=== PATIENT | male | born 1990 | race Caucasian/White ===

== ENCOUNTER 2018-06-18 11:42 | Emergency (ER) | payer OTHER ==
[2018-06-18 11:47] VITALS: BP 122/67; PULSE 67; TEMP 97.9; BMI 23.9
[2018-06-18] MEDS ORDERED: KETOROLAC TROMETHAMINE 30 MG/1 ML VIAL IM ONE (12:13)
--- NOTE | 2018-06-18 12:13 | PDOC ---
History of Present Illness - General Chief Complaint: Back Pain Stated Complaint: LOWER BACK PAIN Time Seen by Provider: 06/18/18 12:01 History Source: Patient Exam Limitations: No Limitations - History of Present Illness Initial Comments: 06/18/18 12:08 CHIEF COMPLAINT: Lower back pain HISTORY OF PRESENT ILLNESS: This is a 28-year-old male denies medical history presents diffuse lower back pain starting 2 days ago while at work. Patient reports her did some heavy lifting and felt a sharp pain come on suddenly in his lower back. Is unable to pinpoint the exact location of the pain. He does report the pain is nonradiating he denies any neurosensory deficits. He denies incontinence of bladder or bowel, urinary retention, saddle anesthesia, foot drop, history of IV drug use or cancer. REVIEW OF SYSTEMS: GENERAL: Afebrile, denies any weakness RESPIRATORY: No cough, wheezing, or hemoptysis. CARDIAC: No chest pain or shortness of breath MUSCULOSKELETAL: Pain to generalized lower back. No point tenderness. SKIN : No erythema, no bruising, no deformity. GI/: Denies any abdominal pain, no urinary difficulty, incontinence or urinary retention. RECTAL: Denies any difficulty this A.m. NEUROLOGICAL: Denies any numbness or tingling. No neurosensory deficits. PHYSICAL EXAM: GENERAL: The patient is awake, alert, and fully oriented, in no acute distress. RESPIRATORY: Lungs clear bilaterally, no rhonchi wheezes or crackles CARDIAC: S1-S2 audible, no murmur rub or gallop MUSCULOSKELETAL: Pain to generalized lower back, nonradiating, no tingling or sensory deficit. Less than 2 second cap refill, +2 pedal pulses. No spinal point tenderness. Normal reflexive and no deficits to sensation or strength. GI/: Abdomen soft, nontender, nondistended. No rebound tenderness. No masses palpable. RECTAL: Deferred patient with no neurological findings SKIN: Warm, Dry, normal turgor, no erythema, no edema no bruising. Past History - Past Medical History Allergies/Adverse Reactions: Allergies Allergy/AdvReac Type Severity Reaction Status Date / Time No Known Allergies Allergy Verified 06/18/18 11:47 Home Medications: Ambulatory Orders Acetaminophen [Tylenol] 650 mg PO QID PRN 06/18/18 Methocarbamol [Robaxin -] 1,500 mg PO Q8H PRN #30 tablet 06/18/18 - Suicide/Smoking/Psychosocial Hx Smoking History: Never smoked *Physical Exam - Vital Signs Last Vital Signs Temp Pulse Resp BP Pulse Ox 97.9 F 67 18 122/67 99 06/18/18 11:46 06/18/18 11:46 06/18/18 11:46 06/18/18 11:46 06/18/18 11:46 Moderate Sedation - Procedure Monitoring Vital Signs: Procedure Monitoring Vital Signs Temperature 97.9 F 06/18/18 11:46 Pulse Rate 67 06/18/18 11:46 Respiratory Rate 18 06/18/18 11:46 Blood Pressure 122/67 06/18/18 11:46 O2 Sat by Pulse Oximetry (%) 99 06/18/18 11:46 Medical Decision Making - Medical Decision Making 06/18/18 12:12 A/P: 28-year-old male lower back pain status post heavy lifting No bony tenderness present No palpable muscle spasms present Able to perform straight leg raises without difficulty Neurovascular intact Toradol 30 miligrams IM now Reassess 06/18/18 13:19 Patient with pain after receiving Toradol. I'll give the patient Valium 5 mg orally now reassess 06/18/18 13:23 Patient feeling pain relief after receiving Valium. I will discharge home *DC/Admit/Observation/Transfer Diagnosis at time of Disposition: Back pain Qualifiers: Back pain location: low back pain Chronicity: acute Back pain laterality: midline Sciatica presence: without sciatica Qualified Code(s): M54.5 - Low back pain - Discharge Dispostion Disposition: HOME Condition at time of disposition: Stable Decision to Admit order: No - Prescriptions Prescriptions: Methocarbamol [Robaxin -] 1,500 mg PO Q8H PRN #30 tablet PRN Reason: Back Pain - Referrals - Patient Instructions Additional Instructions: Take Tylenol or Motrin as needed for pain. Follow manufacturers instructions for appropriate dosage. No heavy lifting. Warm moist heat applied to your back may help alleviate pain. Return to emergency department for discoloration of the feet, numbness or tingling to the feet, worsening pain, or any other concerns. Thank you very much for choosing us to provide your emergent healthcare needs. [place] Tylenol o Motrin segn sea necesario para el dolor. Siga las instrucciones del fabricante para la dosis apropiada. No levantar objetos pesados. El calor hmedo que se aplica en la espalda puede ayudar a aliviar el dolor. Regrese al departamento de emergencias para la decoloracin de los pies, entumecimiento u hormigueo en los pies, empeoramiento del dolor o cualquier otra inquietud. Muchas jett por elegirnos para satisfacer chauncey necesidades de atencin mdica de emergencia. - Post Discharge Activity Forms/Work/School Notes: Back to Work
[2018-06-18] MEDS ORDERED: KETOROLAC TROMETHAMINE 30 MG/1 ML VIAL ONE (12:14)
[2018-06-18] MEDS ORDERED: diazePAM 5 MG TABLET PO ONE (13:07)
[2018-06-18] MEDS ORDERED: diazePAM 5 MG TABLET ONE (13:09)
== END 2018-06-18 13:25 | disposition home or self-care (01) ==
LOC: JERFT 11:42
PROC: 3E0233Z Introduction of Anti-inflammatory into Muscle, Percutaneous Approach (ICD-10-PCS; principal; 2018-06-18)
DX: M54.5 Low back pain (principal); X50.9XXA Other and unspecified overexertion or strenuous movements or postures, initial encounter; Y93.89 Activity, other specified; Y92.69 Other specified industrial and construction area as the place of occurrence of the external cause; Y99.0 Civilian activity done for income or pay
CPT/HCPCS: 99281-25

== ENCOUNTER 2018-08-17 11:05 | Emergency (ER) | payer OTHER ==
[2018-08-17 11:14] VITALS: BP 123/74; PULSE 68; TEMP 98.5; BMI 23.9
--- NOTE | 2018-08-17 13:17 | PDOC ---
History of Present Illness - General Chief Complaint: Shortness of Breath Stated Complaint: UPPER BACK PAIN Time Seen by Provider: 08/17/18 12:55 History Source: Patient Exam Limitations: No Limitations Past History - Travel Traveled outside of the country in the last 30 days: No Close contact w/someone who was outside of country & ill: No - Past Medical History Allergies/Adverse Reactions: Allergies Allergy/AdvReac Type Severity Reaction Status Date / Time No Known Allergies Allergy Verified 08/17/18 11:11 Home Medications: Ambulatory Orders Acetaminophen [Tylenol] 650 mg PO QID PRN 06/18/18 Methocarbamol [Robaxin -] 1,500 mg PO Q8H PRN #30 tablet 06/18/18 CVA: No COPD: No CHF: No - Immunization History Immunization Up to Date: Yes - Suicide/Smoking/Psychosocial Hx Smoking History: Never smoked Hx Alcohol Use: No Drug/Substance Use Hx: No Review of Systems - Review of Systems Able to Perform ROS?: Yes Comments:: 08/17/18 14:47 CONSTITUTIONAL: Absent: fever, chills, diaphoresis, generalized weakness, malaise, loss of appetite HEENT: Absent: rhinorrhea, nasal congestion, throat pain, throat swelling, difficulty swallowing, mouth swelling, ear pain, eye pain, visual Changes CARDIOVASCULAR: Absent: chest pain, loss of consciousness, palpitations, irregular heart rate, peripheral edema RESPIRATORY: Absent: cough, shortness of breath, dyspnea with exertion, orthopnea, wheezing, stridor, hemoptysis GASTROINTESTINAL: Absent: abdominal pain, abdominal distension, nausea, vomiting, diarrhea, constipation, melena, hematochezia GENITOURINARY: Absent: dysuria, frequency, urgency, hesitancy, hematuria, flank pain, genital pain MUSCULOSKELETAL: Present: R upper back pain Absent: myalgia, arthralgia, joint swelling SKIN: Absent: rash, itching, pallor HEMATOLOGIC/IMMUNOLOGIC: Absent: easy bleeding, easy bruising, lymphadenopathy, frequent infections ENDOCRINE: Absent: unexplained weight gain, unexplained weight loss, heat intolerance, cold intolerance NEUROLOGIC: Absent: headache, focal weakness or paresthesias, dizziness, unsteady gait, seizure, mental status changes, bladder or bowel incontinence PSYCHIATRIC: Absent: anxiety, depression, suicidal or homicidal ideation, hallucinations. Is the patient limited [place] proficient: No *Physical Exam - Vital Signs Last Vital Signs Temp Pulse Resp BP Pulse Ox 98.5 F 68 17 123/74 100 08/17/18 11:11 08/17/18 11:11 08/17/18 11:11 08/17/18 11:11 08/17/18 11:11 - Physical Exam Comments: 08/17/18 14:48 GENERAL: Well developed, well nourished. Awake and alert. No acute distress. HEENT: Normocephalic, atraumatic. PERRLA, EOMI. No conjunctival pallor. Sclera are non- icteric. Moist mucous membranes. Oropharynx is clear. NECK: Supple. Full ROM. No JVD. Carotid pulses 2+ and symmetric, without bruits. No thyromegaly. No lymphadenopathy. CARDIOVASCULAR: Regular rate and rhythm. No murmurs, rubs, or gallops. Distal pulses are 2+ and symmetric. PULMONARY: No evidence of respiratory distress. Lungs clear to auscultation bilaterally. No wheezing, rales or rhonchi. ABDOMINAL: Soft. Non-tender. Non-distended. No rebound or guarding. No organomegaly. Normoactive bowel sounds. MUSCULOSKELETAL Normal range of motion at all joints. No bony deformities or tenderness. No CVA tenderness. EXTREMITIES: No cyanosis. No clubbing. No edema. No calf tenderness. SKIN: Warm and dry. Normal capillary refill. No rashes. No jaundice. NEUROLOGICAL: Alert, awake, appropriate. Cranial nerves 2-12 intact. No deficits to light touch and temperature in face, upper extremities and lower extremities. No motor deficits in the in face, upper extremities and lower extremities. Normoreflexic in the upper and lower extremities. Normal speech. Toes are down- going bilaterally. Gait is normal without ataxia. PSYCHIATRIC: Cooperative. Good eye contact. Appropriate mood and affect. *DC/Admit/Observation/Transfer Diagnosis at time of Disposition: Back pain Qualifiers: Back pain location: thoracic back pain Chronicity: acute Back pain laterality: right Qualified Code(s): M54.6 - Pain in thoracic spine - Discharge Dispostion Disposition: HOME Condition at time of disposition: Stable Decision to Admit order: No - Referrals Referrals: Hang Roque MD [Staff Physician] - - Patient Instructions Printed Discharge Instructions: Thoracic Back Pain Additional Instructions: You were evaluated for your back pain today It is most likely muscle strain Your x-ray of your chest is normal Please take Motrin 600mg every 6 hours as needed for pain Follow up with orthopedics if your symptoms do not improve Return to the ED for any new or worsening symptoms Te evaluaron por tu dolor de espalda hoy Es muy probable que la tensin muscular Brown radiografa de brown pecho es normal. [place] Motrin 600 mg cada 6 horas segn sea necesario para el dolor. Hetal un seguimiento con ortopedia si chauncey sntomas no mejoran. Regrese a la dahiana de emergencias para cualquier sntoma nuevo o que empeore. Print Language: HUNGARIAN - Post Discharge Activity Forms/Work/School Notes: Back to Work
[2018-08-17] MEDS ORDERED: IBUPROFEN 600 MG TABLET (FP) PO ONE ×2 (13:18→13:49)
== END 2018-08-17 17:14 | disposition home or self-care (01) ==
LOC: JER 11:05
DX: M54.6 Pain in thoracic spine (principal)
CPT/HCPCS: 71046-TC-FY; 99284-25

== ENCOUNTER → 2019-02-18 | Emergency (ER) | payer SELFPAY ==
[~2019-02-18] MED LIST: ACETAMINOPHEN 325 MG TABLET (FP) ONE; ACETAMINOPHEN 500 MG TABLET (FP) PO ONE; ERYTHROMYCIN 0.5% OPHTHALMIC OINTMENT 3.5 GM TUBE OS ONE; FLUORESCEIN NA 1 EA STRIP OD ONE; FLUORESCEIN NA 1 EA STRIP ONE; TETRACAINE 0.5% HCL 0.6ML DROPPER.BOTTLE OD ONE
[2019-02-18 02:10] VITALS: PULSE 59; BMI 23.6
--- NOTE | 2019-02-18 02:18 | PDOC ---
History of Present Illness - General Chief Complaint: Eye Problem Stated Complaint: EYE PROBLEM - History of Present Illness Initial Comments: 02/18/19 03:17 28 y/o M no significant medical hx, presenting to the ED with right eye pain. 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 This happened around 11 a.m 02/17. He rinsed the eye several times with water but felt no relief. He was wearing some minimal eye protection at the time of the incident .he rates the pain as 6/10 pain with no relieving factors. He endorses photophobia and tearing. Denies blurry vision, headache, difference in vision from base line, fevers chills or other trauma to the area. Past History - Past Medical History Allergies/Adverse Reactions: Allergies Allergy/AdvReac Type Severity Reaction Status Date / Time No Known Allergies Allergy Verified 02/18/19 02:10 Home Medications: Ambulatory Orders Acetaminophen [Tylenol] 650 mg PO QID PRN 06/18/18 Methocarbamol [Robaxin -] 1,500 mg PO Q8H PRN #30 tablet 06/18/18 CVA: No COPD: No CHF: No - Immunization History Immunization Up to Date: Yes - Psycho Social/Smoking Cessation Hx Smoking History: Never smoked Hx Alcohol Use: No Drug/Substance Use Hx: No Review of Systems - Review of Systems Constitutional: No: Chills, Fever HEENTM: Yes: Eye Pain, Tearing Respiratory: No: Cough, Shortness of Breath Cardiac (ROS): No: Chest Pain, Irregular Heart Rate ABD/GI: No: Abdominal Distended, Nausea : No: Burning, Dysuria Musculoskeletal: No: Back Pain, Joint Pain Integumentary: No: Bruising, Change in Color Neurological: No: Headache, Numbness Hematologic/Lymphatic: No: Easy Bleeding, Easy Bruising *Physical Exam - Physical Exam HEENT: positive: EOMI (visual acuity OS 20/20, OD 20/30), Photophobia, Other ( right eye with injected conjunctiva. bottom medial portion of cornia has a circular piece of metal/rust in eye. no hyphema corneal abrasion seen on slit lamp exam with flourescein dye. ). negative: Scleral Icterus (L) Neck: positive: Trachea midline, Supple. negative: Tender Respiratory/Chest: positive: Lungs Clear, Normal Breath Sounds. negative: Chest Tender Cardiovascular: positive: Regular Rhythm, Regular Rate, S1, S2. negative: Edema , JVD Gastrointestinal/Abdominal: positive: Normal Bowel Sounds, Soft Musculoskeletal: positive: Normal Inspection. 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 Dr. Fam Drummond post adoption coordinator opthalmologist contacted for further instruction and recommendations. Discharge - Discharge Information Problems reviewed: Yes Condition: Stable Disposition: HOME - Admission No - Follow up/Referral Referrals: Fam Drummond MD [Staff Physician] - Pedro Mooney [Non Staff, Medical] - - Patient Discharge Instructions Patient Printed Discharge Instructions: DI for Eye Contusion Additional Instructions: You were seen in the ED for eye pain we found a little round spot of rust/ metal in your eye. You have been given antibiotic ointment in the ER We are giving you information for follow up with an opthamologist. Please do so tomorrow. Use the antibiotic ointment twice a day. You can take tylenol for pain at home. Always follow instructions on the label. - Post Discharge Activity Work/Back to School Note: Back to Work
--- NOTE | 2019-02-18 03:30 | PDOC ---
Attending Attestation - Resident Resident Name: Sravanthi Ace - ED Attending Attestation I have performed the following: I have examined & evaluated the patient, The case was reviewed & discussed with the resident, I agree w/resident's findings & plan - HPI HPI: 02/18/19 03:30 see resident hpi - Physicial Exam PE: 02/18/19 03:30 agree with resident exam - Medical Decision Making 02/18/19 03:35 28-year-old male with right eye pain Exam consistent with metallic foreign body with rust ring Case discussed with Dr. Mooney covering for Dr. Drummond for ophthalmology who recommends antibiotic ointment with prompt follow-up tomorrow in the office
[2019-02-18 06:05] VITALS: BP 123/82; TEMP 97.9
== END | disposition home or self-care (01) ==
LOC: JER 01:34
PROC: 4A07X0Z Measurement of Visual Acuity, External Approach (ICD-10-PCS; principal; 2019-02-18)
DX: T15.01XA Foreign body in cornea, right eye, initial encounter (principal); W31.1XXA Contact with metalworking machines, initial encounter; Y93.89 Activity, other specified; Y92.69 Other specified industrial and construction area as the place of occurrence of the external cause; Y99.0 Civilian activity done for income or pay
CPT/HCPCS: 99281-25

== ENCOUNTER 2019-05-18 17:05 | Emergency (ER) | payer OTHER ==
[2019-05-18 17:14] VITALS: BP 123/69; BMI 23.6
[2019-05-18] MEDS ORDERED: ONDANSETRON 4 MG/2 ML VIAL IVPB ONE (17:14)
--- NOTE | 2019-05-18 17:14 | PDOC ---
Rapid Medical Evaluation Time Seen by Provider: 05/18/19 17:10 Medical Evaluation: Allergies Allergy/AdvReac Type Severity Reaction Status Date / Time No Known Allergies Allergy Verified 02/18/19 02:10 05/18/19 17:11 This patient had brief evaluation by me cc: left flank pain since this am HPI: Patient reports left flank pain with nausea and vomiting since this am. Denies dysuria PE: appears in pain + left cva tenderness orders: urine, iv and labs This patient will proceed to the emergency room for further evaluation,. Discharge Disposition - Diagnosis Left flank pain - Referrals - Patient Instructions - Post Discharge Activity
[2019-05-18] MEDS ORDERED: SODIUM CHLORIDE 1,000 ML IV SCH (17:15)
[2019-05-18 17:53] LABS: BASO % 0.2 % (0-2.0); HEMATOCRIT 45.9 % (35.4-49); HEMOGLOBIN 15.8 GM/dL (11.7-16.9); LYMPH % 3.6 % (8-40); MCH 30.3 pg (25.7-33.7); MCHC 34.5 g/dl (32.0-35.9); MEAN CELL VOLUME 87.8 fl (80-96); MEAN PLT VOLUME 8.3 fl (7.5-11.1); MONO % 7.7 % (3.8-10.2); NEUT % 88.5 % (42.8-82.8); PH,URINE 7.5 (5.0-8.0); PLATELET COUNT 197 K/MM3 (134-434); RBC 5.23 M/mm3 (4.00-5.60); RDW 13.4 % (11.9-15.9); URINE APPEARANCE CLEAR; URINE BILIRUBIN NEGATIVE (NEGATIVE); URINE COLOR YELLOW; URINE GLUCOSE (UA) NEGATIVE (NEGATIVE); URINE KETONE TRACE (NEGATIVE); URINE LEUK ESTERASE NEGATIVE (NEGATIVE); URINE NITRITE NEGATIVE (NEGATIVE); URINE PROTEIN TRACE (NEGATIVE); URINE UROBILINOGEN 0.2 mg/dL (0.2-1.0); WHITE BLOOD COUNT 6.7 K/mm3 (4.0-10.0)
[2019-05-18 18:25] LABS: ALBUMIN 4.5 g/dl (3.4-5.0); BILIRUBIN,TOTAL 0.4 mg/dL (0.2-1); BLOOD UREA NITROGEN 28.6 mg/dL (7-18); POTASSIUM 3.9 mmol/L (3.5-5.1)
[2019-05-18] MEDS ORDERED: ONDANSETRON 4 MG/2 ML VIAL ONE (19:28)
--- NOTE | 2019-05-18 19:44 | PDOC ---
History of Present Illness - General Chief Complaint: Pain Stated Complaint: BACK PAIN Time Seen by Provider: 05/18/19 17:10 History Source: Patient - History of Present Illness Initial Comments: 05/18/19 20:54 29 year old nausea and vomiting since 9 a,m noted to have fever at 7 am. 1 day prior patient reports that he ate tacos at a restaurant. patient c/o left flank pain. denies headache. chest pain, difficulty breathing, urinary symptoms No PMHX 05/19/19 02:53 Past History - Past Medical History Allergies/Adverse Reactions: Allergies Allergy/AdvReac Type Severity Reaction Status Date / Time No Known Allergies Allergy Verified 05/18/19 17:14 Home Medications: Ambulatory Orders NK [No Known Home Medication] 02/18/19 CVA: No COPD: No CHF: No - Immunization History Immunization Up to Date: Yes - Psycho Social/Smoking Cessation Hx Smoking History: Never smoked Hx Alcohol Use: No Drug/Substance Use Hx: No Review of Systems - Review of Systems Able to Perform ROS?: Yes Is the patient limited Malay proficient: No Constitutional: Yes: Fever ABD/GI: Yes: Nausea, Vomiting *Physical Exam - Vital Signs Last Vital Signs Temp Pulse Resp BP Pulse Ox 100.9 F H 99 H 18 123/69 100 05/18/19 19:41 05/18/19 17:09 05/18/19 17:09 05/18/19 17:09 05/18/19 17:09 - Physical Exam General Appearance: Yes: Appropriately Dressed Respiratory/Chest: positive: Lungs Clear, Normal Breath Sounds Cardiovascular: positive: Regular Rhythm, Regular Rate Gastrointestinal/Abdominal: positive: Normal Bowel Sounds, Tender (generalized abdominal tenderness in all quadrant), Soft Musculoskeletal: negative: CVA Tenderness Extremity: positive: Normal Capillary Refill, Normal Inspection, Normal Range of Motion Integumentary: positive: Normal Color, Dry, Warm Neurologic: positive: Fully Oriented, Alert ED Treatment Course - LABORATORY CBC & Chemistry Diagram: 05/18/19 17:31 05/18/19 17:31 - ADDITIONAL ORDERS Additional order review: Laboratory Results 05/18/19 05/18/19 17:31 17:31 Sodium 135 L Potassium 3.9 Chloride 101 Carbon Dioxide 26 Anion Gap 8 BUN 28.6 H Creatinine 1.0 Est GFR (CKD-EPI)AfAm 117.36 Est GFR (CKD-EPI)NonAf 101.26 Random Glucose 147 H Calcium 9.0 Total Bilirubin 0.4 AST 21 ALT 38 Alkaline Phosphatase 71 Total Protein 8.0 Albumin 4.5 Urine Color Yellow Urine Appearance Clear Urine pH 7.5 Ur Specific [place] 1.030 Urine Protein Trace Urine Glucose (UA) Negative Urine Ketones Trace H Urine Blood Negative Urine Nitrite Negative Urine Bilirubin Negative Urine Urobilinogen 0.2 Ur Leukocyte Esterase Negative 05/18/19 17:31 RBC 5.23 MCV 87.8 MCHC 34.5 RDW 13.4 MPV 8.3 Neutrophils % 88.5 H Lymphocytes % 3.6 L Monocytes % 7.7 Eosinophils % 0.0 Basophils % 0.2 - Medications Given in the ED: ED Medications Discontinued Medications Generic Name Dose Route Start Last Admin Trade Name Sammi PRN Reason Stop Dose Admin Ondansetron HCl 4 mg 05/18/19 17:14 05/18/19 19:41 Zofran Injection IVPB 05/18/19 17:15 4 mg ONCE ONE Administration Medical Decision Making - Medical Decision Making 05/18/19 21:10 Vomiting and abdominal pain P: CBC CMP UA influenza negative 05/18/19 22:41 tolerated PO water. patient no abdominal pain at this time. will give IVF x 1 again and revital Discharge - Discharge Information Problems reviewed: Yes Clinical Impression/Diagnosis: Nausea and vomiting Qualifiers: Vomiting type: unspecified Vomiting Intractability: non-intractable Qualified Code(s): R11.2 - Nausea with vomiting, unspecified Abdominal pain Qualifiers: Abdominal location: generalized Qualified Code(s): R10.84 - Generalized abdominal pain Condition: Improved Disposition: HOME - Follow up/Referral - Patient Discharge Instructions Patient Printed Discharge Instructions: Viral Gastroenteritis Additional Instructions: Drink plenty of fluids start a BRAT ( bananas, rice apples toast) follow up with your doctor return to the ER if symptoms worsen - Post Discharge Activity Work/Back to School Note: Back to Work
--- NOTE | 2019-05-18 19:45 | PDOC ---
*Physical Exam - Vital Signs Last Vital Signs Temp Pulse Resp BP Pulse Ox 100.9 F H 99 H 18 123/69 100 05/18/19 19:41 05/18/19 17:09 05/18/19 17:09 05/18/19 17:09 05/18/19 17:09 ED Treatment Course - LABORATORY CBC & Chemistry Diagram: 05/18/19 17:31 05/18/19 17:31 - ADDITIONAL ORDERS Additional order review: Laboratory Results 05/18/19 05/18/19 17:31 17:31 Sodium 135 L Potassium 3.9 Chloride 101 Carbon Dioxide 26 Anion Gap 8 BUN 28.6 H Creatinine 1.0 Est GFR (CKD-EPI)AfAm 117.36 Est GFR (CKD-EPI)NonAf 101.26 Random Glucose 147 H Calcium 9.0 Total Bilirubin 0.4 AST 21 ALT 38 Alkaline Phosphatase 71 Total Protein 8.0 Albumin 4.5 Urine Color Yellow Urine Appearance Clear Urine pH 7.5 Ur Specific [place] 1.030 Urine Protein Trace Urine Glucose (UA) Negative Urine Ketones Trace H Urine Blood Negative Urine Nitrite Negative Urine Bilirubin Negative Urine Urobilinogen 0.2 Ur Leukocyte Esterase Negative 05/18/19 17:31 RBC 5.23 MCV 87.8 MCHC 34.5 RDW 13.4 MPV 8.3 Neutrophils % 88.5 H Lymphocytes % 3.6 L Monocytes % 7.7 Eosinophils % 0.0 Basophils % 0.2 - Medications Given in the ED: ED Medications Discontinued Medications Generic Name Dose Route Start Last Admin Trade Name Freq PRN Reason Stop Dose Admin Ondansetron HCl 4 mg 05/18/19 17:14 05/18/19 19:41 Zofran Injection IVPB 05/18/19 17:15 4 mg ONCE ONE Administration Medical Decision Making - Medical Decision Making 05/18/19 19:45 Patient seen by the advanced practice provider under my direct supervision. Ancillary testing reviewed as necessary. I agree with plan as outlined by the advanced practice provider. Discharge - Discharge Information Problems reviewed: Yes Clinical Impression/Diagnosis: Nausea and vomiting Qualifiers: Vomiting type: unspecified Vomiting Intractability: non-intractable Qualified Code(s): R11.2 - Nausea with vomiting, unspecified Abdominal pain Qualifiers: Abdominal location: generalized Qualified Code(s): R10.84 - Generalized abdominal pain Disposition: HOME - Follow up/Referral - Patient Discharge Instructions Patient Printed Discharge Instructions: Viral Gastroenteritis Additional Instructions: Drink plenty of fluids start a BRAT ( bananas, rice apples toast) follow up with your doctor return to the ER if symptoms worsen - Post Discharge Activity Work/Back to School Note: Back to Work
[2019-05-18] MEDS ORDERED: ACETAMINOPHEN INJECTION 100 ML IVPB ONE (19:56)
[2019-05-18] MEDS ORDERED: ACETAMINOPHEN 1000 MG/100 ML VIAL (NON FORMULARY) IVPB ONE (20:32)
[2019-05-18] MEDS ORDERED: SODIUM CHLORIDE 1,000 ML IV STA ×2 (20:53→22:42)
[2019-05-18] MEDS ORDERED: KETOROLAC TROMETHAMINE 30 MG/1 ML VIAL IVPUSH ONE (21:11)
[2019-05-18] MEDS ORDERED: FAMOTIDINE 20 MG/50 ML IVPB 20 MG/50 ML MG IVPB ONE ×2 (21:11→21:23)
[2019-05-18] MEDS ORDERED: KETOROLAC TROMETHAMINE 30 MG/1 ML VIAL ONE (21:23)
[2019-05-18 23:45] VITALS: PULSE 89; TEMP 98
== END 2019-05-19 00:23 | disposition home or self-care (01) ==
LOC: JER 17:05
PROC: 3E0337Z Introduction of Electrolytic and Water Balance Substance into Peripheral Vein, Percutaneous Approach (ICD-10-PCS; principal; 2019-05-18)
PROC: 3E033GC Introduction of Other Therapeutic Substance into Peripheral Vein, Percutaneous Approach (ICD-10-PCS; 2019-05-18)
PROC: 3E033NZ Introduction of Analgesics, Hypnotics, Sedatives into Peripheral Vein, Percutaneous Approach (ICD-10-PCS; 2019-05-18)
DX: R10.84 Generalized abdominal pain (principal); R11.2 Nausea with vomiting, unspecified
CPT/HCPCS: 36415; 80053; 81003; 85025; 87086; 87804; 96361; 96374; 96375; 99283-25; J0131; J7030

== ENCOUNTER 2019-05-19 07:35 | Emergency (ER) | payer OTHER ==
[2019-05-19 07:57] VITALS: BMI 25.1
[2019-05-19] MEDS ORDERED: IBUPROFEN 600 MG TABLET (FP) PO ONE ×3 (08:16→08:46)
--- NOTE | 2019-05-19 08:25 | PDOC ---
History of Present Illness - General Chief Complaint: Cold Symptoms Stated Complaint: BACK PAIN Time Seen by Provider: 05/19/19 08:12 - History of Present Illness Initial Comments: 05/19/19 08:22 CHIEF COMPLAINT: fever HISTORY OF PRESENT ILLNESS: 29 yo M presents to ED with fever and body aches. Patient was evaluated in this ED and had unremarkable bloodwork/flu swab and had improvement of symptoms after fluids but reports that his fever came back over night and that he is still coughing. Patient states he has not taken any medications including Motrin or Tylenol since his discharge "because they didn' t prescribe me anything." No recent travel or sick contacts. PAST MEDICAL HISTORY: Denies past medical history FAMILY HISTORY: Denies SOCIAL HISTORY: Denies tobacco, alcohol, illicit drug use. SURGICAL HISTORY: Denies ALLERGIES: No known drug allergies REVIEW OF SYSTEMS General/Constitutional: Fever x 2 days. Bodyaches. Denies weakness, weight change. HEENT: Denies change in vision. Denies ear pain or discharge. Denies sore throat. Cardiovascular: Denies chest pain or shortness of breath. Respiratory:Cough. Denies wheezing, or hemoptysis. Gastrointestinal: Denies nausea, vomiting, diarrhea or constipation. Denies rectal bleeding. Genitourinary: Denies dysuria, frequency, or change in urination. Musculoskeletal: Denies joint or muscle swelling or pain. Denies neck or back pain. Skin and breasts: Denies rash or easy bruising. Neurologic: Denies headache, vertigo, loss of consciousness, or loss of sensation. Psychiatric: Denies depression or anxiety. PHYSICAL EXAM General Appearance: Well-appearing, appropriately dressed. No apparent distress , no intoxication. HEENT: EOMI, PERRLA, normal ENT inspection, normal voice, TMs normal, pharynx normal. No conjunctival pallor. No photophobia, scleral icterus. Neck: Supple. Trachea midline. No tenderness, rigidity, carotid bruit, stridor , lymphadenopathy, or thyromegaly. Respiratory/Chest: Lungs CTAB. No shortness of breath, chest tenderness, respiratory distress, accessory muscle use. No crackles, rales, rhonchi, stridor , wheezing, dullness Cardiovascular: RRR. S1, S2. No JVD, murmur, bradycardia, tachycardia. Vascular Pulses: Dorsalis-Pedis (R): 2+, Dorsalis-Pedis (L): 2+ Gastrointestinal/Abdominal: Normal bowel sounds. Abdomen soft, non-distended. No tenderness or rebound tenderness. No organomegaly, pulsatile mass, guarding , hernia, hepatomegaly, splenomegaly. Lymphatic: No adenopathy, tenderness. Musculoskeletal/Extremities: Normal inspection. FROM of all extremities, normal capillary refill. Pelvis Stable. No CVA tenderness. No tenderness to extremities, pedal edema, swelling, erythema or deformity. Integumentary: Appropriate color, dry, warm. No cyanosis, erythema, jaundice or rash Neurologic: outer diameter grinder tool II-XII intact. Fully oriented, alert. Appropriate mood/affect. Motor strength 5/5. No appreciable EOM palsy, facial droop or sensory deficit. Past History - Past Medical History Allergies/Adverse Reactions: Allergies Allergy/AdvReac Type Severity Reaction Status Date / Time No Known Allergies Allergy Verified 05/19/19 07:50 Home Medications: Ambulatory Orders Benzonatate 200 mg PO TID #30 capsule 05/19/19 Ibuprofen 600 mg PO QID #30 tablet 05/19/19 CVA: No COPD: No CHF: No - Immunization History Immunization Up to Date: Yes - Psycho Social/Smoking Cessation Hx Smoking History: Never smoked Have you smoked in the past 12 months: No Hx Alcohol Use: No Drug/Substance Use Hx: No *Physical Exam - Vital Signs Last Vital Signs Temp Pulse Resp BP Pulse Ox 102.5 F H 109 H 20 117/58 L 100 05/19/19 07:50 05/19/19 07:50 05/19/19 07:50 05/19/19 07:50 05/19/19 07:50 Medical Decision Making - Medical Decision Making 05/19/19 12:50 29 yo M presents to ED with fever and body aches. Exam grossly unremarkable. Patient labs/flu swab from yesterday negative. Likely viral syndrome. Will treat symptomatically. Advised patient to take medication as prescribed and follow up with PCP within the next week. Advised patient of signs and symptoms for return to ED. Patient verbalized understanding and agrees to plan. Discharge - Discharge Information Problems reviewed: Yes Clinical Impression/Diagnosis: Viral syndrome Condition: Stable Disposition: HOME - Admission No - Additional Discharge Information Prescriptions: Benzonatate 200 mg PO TID #30 capsule Ibuprofen 600 mg PO QID #30 tablet - Follow up/Referral Referrals: Silvano Hopkins MD [Staff Physician] - - Patient Discharge Instructions Patient Printed Discharge Instructions: DI for Viral Syndrome Additional Instructions: Please take medications as prescribed. Follow up with your primary care doctor in one week for continued monitoring of your symptoms. If you develop any persistent fever unrelieved by Motrin or Tylenol, nausea/vomiting, diarrhea, or any new or worsening symptoms, please return to the ER. - Post Discharge Activity Work/Back to School Note: Back to Work
[2019-05-19 08:58] VITALS: BP 127/60; PULSE 85; TEMP 100.4
== END 2019-05-19 09:29 | disposition home or self-care (01) ==
LOC: JER 07:35 → JERFT 07:35
DX: B34.9 Viral infection, unspecified (principal)
CPT/HCPCS: 99282-25